=== PATIENT | female | born 1990 | race Hispanic/Latino ===

== ENCOUNTER 2021-03-29 01:59 | Emergency (ER) | payer MEDICAID ==
[~2021-03-29] VITALS: Ht 162.6 cm; Wt 78.5 kg
[2021-03-29 02:05] VITALS: BP 124/80
[2021-03-29] MEDS ORDERED: 0.9%NACL 1000ML 1,000 ML IV ONE (03:30)
[2021-03-29] MEDS ORDERED: PHEN-847 PO (16:15)
[2021-03-29] MEDS ORDERED: POTA20TA10 PO (16:15)
[2021-03-29] MEDS ORDERED: CEPH500B PO (16:15)
== END 2021-03-29 03:27 | disposition left against medical advice (07) ==
LOC: EDH 01:59
DX: O20.9 Hemorrhage in early pregnancy, unspecified (principal); O26.891 Other specified pregnancy related conditions, first trimester; R10.9 Unspecified abdominal pain; R05 Cough; E03.9 Hypothyroidism, unspecified; E11.9 Type 2 diabetes mellitus without complications; Z3A.08 8 weeks gestation of pregnancy
CPT/HCPCS: 36415; 82010; 82948

== ENCOUNTER 2021-03-29 14:22 | Emergency (ER) | payer MEDICAID ==
[~2021-03-29] VITALS: Ht 152.4 cm; Wt 63.5 kg
[2021-03-29 14:48] LABS: BASOPHILS % (AUTO) 0.6 % (0.0-5.0); EOSINOPHILS % (AUTO) 0.1 % (0.0-8.0); HEMATOCRIT 38.3 % (36-48); LYMPHOCYTES % (AUTO) 23.3 % (21.0-51.0); MEAN CORPUSCULAR HGB CONC 29.5 g/dL (32.0-36.0); MEAN CORPUSCULAR VOLUME 67.7 fL (79-99); MONOCYTES % (AUTO) 5.9 % (3.0-13.0); NEUTROPHILS % (AUTO) 69.9 % (40.0-77.0); PLATELET COUNT (AUTO) 335 K/uL (130-400); RED BLOOD CELL COUNT(AUTO) 5.66 MIL/uL (4.00-5.50); RED CELL DISTRIBUTION WIDTH 17.8 % (11.0-15.5); WHITE BLOOD COUNT (AUTO) 8.2 K/uL (4.8-10.8)
[2021-03-29] MEDS ORDERED: DIPHENHYDRAMINE HCL 25 MG CAPSULE PO ONE (15:00)
[2021-03-29 15:01] LABS: ALBUMIN 4.3 g/dL (3.5-5.0); BILIRUBIN,TOTAL 1.3 mg/dL (0.2-1.0); CREATININE 0.9 mg/dL (0.5-1.5); TOTAL PROTEIN, SERUM 9.1 g/dL (6.0-8.3)
[2021-03-29 15:07] LABS: POTASSIUM 2.8 mmol/L (3.5-5.1)
[2021-03-29 15:08] VITALS: BP 139/89
[2021-03-29 15:16] LABS: APPEARANCE,URINE CLOUDY (CLEAR); BILIRUBIN,URINE NEGATIVE (NEGATIVE); COLOR,URINE YELLOW (YELLOW); GLUCOSE, URINE (UA) >=1000 mg/dL (NEGATIVE); KETONES,URINE 15 mg/dL (NEGATIVE); LEUKOCYTE ESTERASE ,URINE SMALL (NEGATIVE); NITRATE,URINE POSITIVE (NEGATIVE); OCCULT BLOOD,URINE MODERATE (NEGATIVE); PROTEIN,URINE 30 mg/dL (NEGATIVE)
[2021-03-29 15:22] LABS: BACTERIA,URINE Few /HPF (None Seen); SQUAMOUS EPITHELIAL CELL,UR Rare /HPF (0-2); WBC,URINE >100 /HPF (0-1)
[2021-03-29] MEDS ORDERED: POTASSIUM BICARB/CIT AC 25 MEQ TABLET.EFF PO SCH (15:30)
[2021-03-29] MEDS ORDERED: PHEN-847 PO (16:15)
[2021-03-29] MEDS ORDERED: POTA20TA10 PO (16:15)
[2021-03-29] MEDS ORDERED: CEPH500B PO (16:15)
[2021-03-29] MEDS ORDERED: LIDOCAINE HCL-MPF 1% 2ML VIAL ONE (16:17)
[2021-03-29] MEDS ORDERED: CEFTRIAXONE 1G VIAL ONE (16:17)
[2021-03-29] MEDS ORDERED: CEFTRIAXONE 1G VIAL IVP ONE (16:30)
[2021-03-29] MEDS ORDERED: PHENAZOPYRIDINE HCL 200 MG TABLET PO ONE (16:30)
== END 2021-03-29 17:11 | disposition home or self-care (01) ==
LOC: EDH 14:51
DX: O20.9 Hemorrhage in early pregnancy, unspecified (principal); O26.891 Other specified pregnancy related conditions, first trimester; R10.9 Unspecified abdominal pain; R05 Cough; N39.0 Urinary tract infection, site not specified; E03.9 Hypothyroidism, unspecified; E87.6 Hypokalemia; E10.65 Type 1 diabetes mellitus with hyperglycemia; E66.9 Obesity, unspecified; Z3A.08 8 weeks gestation of pregnancy
CPT/HCPCS: 36415 ×2; 80053; 81001; 82010; 82948; 84702; 85025; 86900; 86901; 87077; 87088; 87186; 96372; 99283 ×2; J0696; J3490

== ENCOUNTER 2025-02-26 02:21 | Emergency (ER) | payer BC, MEDICAID ==
[~2025-02-26] VITALS: Ht 162.6 cm; Wt 61.7 kg
[~2025-02-26 02:21] MED LIST: CEPH500B PO; PHEN-847 PO; POTA20TA10 PO
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
[2025-02-26] MEDS: cefTRIAXone 1G VIAL IVPB ONE (03:14)
[2025-02-26] MEDS: LACTATED RINGERS 1000ML IV STA (03:14)
[2025-02-26 03:25] LABS: BASOPHILS # (AUTO) 0.06 K/uL (0.00-0.20); BASOPHILS % (AUTO) 0.8 % (0.0-5.0); EOSINOPHILS # (AUTO) 0.04 K/uL (0.00-0.70); EOSINOPHILS % (AUTO) 0.5 % (0.0-8.0); HEMATOCRIT 33.2 % (36-48); IMMATURE GRANULOCYTE ABSOLUTE 0.12 K/uL (0-1); LYMPHOCYTES # (AUTO) 2.5 K/uL (1.0-4.8); LYMPHOCYTES % (AUTO) 33.6 % (21.0-51.0); MEAN CORPUSCULAR HEMOGLOBIN 21.3 pg (27.0-33.0); MEAN CORPUSCULAR VOLUME 68.7 fL (79-99); MONOCYTES # (AUTO) 0.5 K/uL (0.1-1.0); MONOCYTES % (AUTO) 7.1 % (3.0-13.0); NEUTROPHILS # (AUTO) 4.2 K/uL (1.8-7.7); NEUTROPHILS % (AUTO) 56.4 % (40.0-77.0); NUCLEATED RED BLOOD CELLS 0.3 % (0.0-0.19); PLATELET COUNT (AUTO) 408 K/uL (130-400); RED BLOOD CELL COUNT(AUTO) 4.83 MIL/uL (4.00-5.50); RED CELL DISTRIBUTION WIDTH 15.7 % (11.0-15.5); WHITE BLOOD COUNT (AUTO) 7.5 K/uL (4.8-10.8)
[2025-02-26] MEDS ORDERED: INSULIN humuLIN R 100 UNIT/ML 3ML SQ STA (03:33)
[2025-02-26 03:38] LABS: ALBUMIN 2.9 g/dL (3.5-5.0); BILIRUBIN,TOTAL 0.4 mg/dL (0.2-1.0); CREATININE 0.6 mg/dL (0.5-1.0); TOTAL PROTEIN, SERUM 9.1 g/dL (6.0-8.3)
[2025-02-26 03:40] LABS: POTASSIUM 2.6 mmol/L (3.5-5.1)
[2025-02-26] MEDS: PoTASSium BIcarbonate/CIT AC 25 MEQ TABLET.EFF PO ONE (03:48)
[2025-02-26 03:52] LABS: ADD UA MICROSCOPIC YES; APPEARANCE,URINE CLEAR (CLEAR); BILIRUBIN,URINE NEGATIVE (NEGATIVE); COLOR,URINE LIGHT-YELLOW (YELLOW); GLUCOSE, URINE (UA) >=1000 mg/dL (NEGATIVE); KETONES,URINE 40 mg/dL (NEGATIVE); LEUKOCYTE ESTERASE ,URINE 75 Leu/uL (NEGATIVE); NITRATE,URINE NEGATIVE (NEGATIVE); OCCULT BLOOD,URINE MODERATE (NEGATIVE); PH,URINE 6.5 (5.0-8.0); PROTEIN,URINE 10 mg/dL (NEGATIVE); UROBILINOGEN,URINE 0.2 mg/dL (0.2-1.0)
[2025-02-26 03:54] LABS: BACTERIA,URINE MOD /HPF (None Seen); RBC,URINE 51-100 /HPF (0-1); SQUAMOUS EPITHELIAL CELL,UR FEW /HPF (0-2); WBC,URINE 26-50 /HPF (0-1)
[2025-02-26 03:59] LABS: AMPHET/METH SCREEN,URINE NEGATIVE (NEGATIVE); BARBITURATE SCREEN, URINE NEGATIVE (NEGATIVE); BENZODIAZEPINES SCREEN,URINE NEGATIVE (NEGATIVE); CANNABINOID SCREEN,URINE NEGATIVE (NEGATIVE); COCAINE SCREEN,URINE NEGATIVE (NEGATIVE); OPIATE SCREEN,URINE NEGATIVE (NEGATIVE); PHENCYCLIDINE SCREEN,URINE NEGATIVE (NEGATIVE)
[2025-02-26 04:05] LABS: HCG,QUALITATIVE URINE NEGATIVE (NEGATIVE)
[2025-02-26] MEDS: INSULIN humuLIN R 100 UNIT/ML 3ML SQ ONE (04:06)
[2025-02-26] MEDS: AZITHROMYCIN 500MG+NS 250ML 250 ML IVPB SCH (04:08)
[2025-02-26] MEDS ORDERED: MICO45CR16 VG (04:58)
[2025-02-26] MEDS ORDERED: CEPH500B PO (04:58)
[2025-02-26] MEDS ORDERED: CLIN-141 PO (04:58)
[2025-02-26 06:24] VITALS: BP 116/68; PULSE 76; RESP 18; TEMP 98; O2SAT 100
== END 2025-02-26 06:26 | disposition home or self-care (01) ==
LOC: EDH 02:21
DX: E87.6 Hypokalemia (principal); N39.0 Urinary tract infection, site not specified; E11.65 Type 2 diabetes mellitus with hyperglycemia; E03.9 Hypothyroidism, unspecified; Z98.890 Other specified postprocedural states
CPT/HCPCS: 99284; 96374; 96375; 84443; 80053; 80305; 85025; 87086 ×2; 87186; 82948 ×3; 87491; 87591; 81025; 36415; 96372; 81001; J1815; J0696; J0456